=== PATIENT | female | born 1980 | race Caucasian/White ===

== ENCOUNTER 2019-07-01 14:14 | Outpatient (CLI) | payer OTHER ==
--- NOTE | 2019-07-01 16:00 | Ultrasound Report ---
Reason: RT BREAST PAIN Procedure Date: 07/01/2019 Accession Number: [id number] / [id number] Procedure: US - Breast Unilateral Limited CPT Code: FULL RESULT: EXAM: Breast Unilateral Ultrasound Limited, Diagnostic Dig Bilat DATE: 07/01/2019 3:36 PM CLINICAL HISTORY: RT BREAST PAIN COMPARISON: None. Baseline exam. BILATERAL MAMMOGRAPHY: TECHNIQUE: (B) - Bilateral CC and MLO views were obtained. PARENCHYMAL PATTERN: (D) - The breasts demonstrate heterogeneously dense fibroglandular parenchyma bilaterally. FINDINGS: No mammographic abnormality in the area of right upper outer quadrant pain There are no suspicious masses, calcifications, or areas of distortion. RIGHT BREAST ULTRASOUND: TECHNIQUE: Targeted ultrasound was performed of the right breast in the area of clinical pain upper outer quadrant. Color Doppler was employed as appropriate. FINDINGS: No cystic or solid mass, abnormal fluid collections, or other abnormality. IMPRESSION: Negative bilateral mammography and right breast ultrasound RECOMMENDATION: Annual mammographic screening. Clinical follow-up of breast pain. BIRADS CATEGORY 1: Negative STANDARD QUALIFYING STATEMENTS: 1. This examination was not reviewed with the aid of Computer-Aided Detection (CAD). 2. A negative or benign imaging report should not preclude biopsy if clinically suspicious findings are present. 3. Dense breasts may obscure an underlying neoplasm. 4. This examination was reviewed with the aid of 3D breast imaging (tomosynthesis).
== END 2019-07-01 14:15 | disposition home or self-care (01) ==
LOC: DI 14:14
PROVIDERS: ATTEND Nurse Practitioner Family
DX: N64.4 Mastodynia (principal)
CPT/HCPCS: 76642; 77066

== ENCOUNTER 2021-11-27 16:06 | Outpatient (CLI) | payer OTHER ==
--- NOTE | 2021-11-29 07:26 | Mammography Report ---
BILATERAL DIGITAL SCREENING MAMMOGRAM 3D/2D WITH EXAGGERATED CC: 11/27/2021 CLINICAL: Routine screening. Family history of breast cancer. Comparison is made to exam dated: 07/01/2019 mammogram - [facility]. The tissue of both breasts is heterogeneously dense. This may lower the sensitivity of mammography. No significant masses, calcifications, or other findings are seen in either breast. There has been no significant interval change. IMPRESSION: NEGATIVE There is no mammographic evidence of malignancy. A 1 year screening mammogram is recommended. This exam was interpreted at Station ID: [id number]. NOTE: For mammograms, a report in lay terms will be sent to the patient. Approximately 15% of breast malignancies will not be visualized mammographically. In the management of a palpable breast mass, a negative mammogram must not discourage biopsy of a clinically suspicious lesion. Electronically Signed By: Dean Bernstein M.D. [email or web address]/penrad:11/28/2021 09:26:03 ACR BI-RADS Category 1: Negative 3341F PARENCHYMAL PATTERN: (D) - The breast(s) demonstrate(s) heterogeneously dense fibroglandular gee downs. BI-RADS CATEGORY: (1) - 1 RECOMMENDATION: (ANNUAL) - Recommend routine annual screening mammography. [id number] 1 year screening LATERALITY: (B)
== END 2021-11-27 16:07 | disposition home or self-care (01) ==
LOC: DI.S 16:06
PROVIDERS: ATTEND Nurse Practitioner Family
DX: Z12.31 Encounter for screening mammogram for malignant neoplasm of breast (principal)

== ENCOUNTER 2022-12-31 08:54 | Outpatient (CLI) | payer OTHER ==
--- NOTE | 2023-01-01 10:36 | Mammography Report ---
BILATERAL DIGITAL SCREENING MAMMOGRAM 3D/2D WITH EXAGGERATED CC: 12/31/2022 CLINICAL: Routine screening. Family history of breast cancer. Comparison is made to exams dated: 11/27/2021 mammogram and 07/01/2019 mammogram - [facility]. Both breasts are heterogeneously dense, which may obscure small masses (category c / 51-75% glandular tissue). No significant masses, calcifications, or other findings are seen in either breast. There has been no significant interval change. IMPRESSION: NEGATIVE There is no mammographic evidence of malignancy. A 1 year screening mammogram is recommended. Based on the Tyrer Cuzick model (a risk assessment model) the patients lifetime risk is 14.6% and he r 10 year risk is 2.4%. According to the ACR, ACS, and NCCN guidelines, an annual breast MRI exam juan ng with mammogram is recommended if the patients lifetime risk is 20% or greater. This exam was interpreted at Station ID: [id number]. NOTE: For mammograms, a report in lay terms will be sent to the patient. Approximately 15% of breast malignancies will not be visualized mammographically. In the management of a palpable breast mass, a negative mammogram must not discourage biopsy of a clinically suspicious lesion. Electronically Signed By: Thomas ponce/gin:12/31/2022 12:16:21 letter sent: No_Letter ACR BI-RADS Category 1: Negative 3341F PARENCHYMAL PATTERN: (D) - The breast(s) demonstrate(s) heterogeneously dense fibroglandular gee downs. BI-RADS CATEGORY: (1) - 1 Mammogram [id number] 1 year screening LATERALITY: (B)
== END 2022-12-31 08:55 | disposition home or self-care (01) ==
LOC: DI.S 08:54
PROVIDERS: ATTEND Nurse Practitioner Family
DX: Z12.31 Encounter for screening mammogram for malignant neoplasm of breast (principal)